=== PATIENT | male | born 1990 | race African-American/Black ===

== ENCOUNTER 2019-03-27 00:30 | Outpatient (CLI) | payer OTHER ==
--- NOTE | 2019-03-27 10:45 | Diagnostic Imaging Report ---
Indication: Right lower quadrant pain Technique: Spiral acquisitions obtained through the abdomen and pelvis. No oral contrast utilized, per emergency room physician request No IV contrast utilized, per referring physician request.. Multiplanar reconstructions were generated. Total dose length product 1079.07 mGycm. CTDIvol(s) 15.23 mGy. Dose reduction achieved using automated exposure control Comparison: None Findings: The appendix is enlarged and there is periappendiceal inflammation. There is trace fluid in the adjacent fascial planes. No discrete fluid collection. No extraluminal gas. There are prominent adjacent lymph nodes. There is no evidence of diverticulosis or diverticulitis. No free or loculated intraperitoneal gas or fluid. No small bowel distention. There is a small fat-containing umbilical hernia. The distal esophagus, stomach, duodenum are unremarkable. Lack of IV contrast limits assessment of solid organs. The liver, gallbladder, bile ducts, pancreas, spleen, adrenals, kidneys are unremarkable. No renal or ureteral calculi, hydronephrosis, or hydroureter. No retroperitoneal or mesenteric mass or adenopathy. No pelvic mass or adenopathy. There are some atelectatic changes at the right lung base. The bones demonstrate bilateral L5 spondylolysis. No evidence of spondylolisthesis Impression: Positive for uncomplicated acute appendicitis Other findings as noted, including bilateral L5 spondylolysis without spondylolisthesis, small fat-containing umbilical hernia, basilar atelectatic pulmonary changes This agrees with the preliminary interpretation provided overnight by [facility]. The CT scanner at [facility] is accredited by the [employer] and the scans are performed using protocols designed to limit radiation exposure to as low as reasonably achievable to attain images of sufficient resolution adequate for diagnostic evaluation.
--- NOTE | 2019-03-27 10:45 | Diagnostic Imaging Report ---
Axial Indication: Chest pain Technique: One view of the chest Comparison: none Findings: Lungs and pleural spaces are clear. Heart size is normal. Impression: No acute process This agrees with the preliminary interpretation provided overnight by [facility].
== END 2019-03-27 02:30 | disposition home or self-care (01) ==
LOC: RAD 00:30
DX: R10.31 Right lower quadrant pain (principal); K35.80 Unspecified acute appendicitis; M47.9 Spondylosis, unspecified; K42.9 Umbilical hernia without obstruction or gangrene
CPT/HCPCS: 71045; 74176